=== PATIENT | male | born 1935 | race Caucasian/White ===

== ENCOUNTER 2016-10-28 08:54 | Outpatient (CLI) | payer MEDICARE, BC ==
[~2016-10-28] VITALS: Ht 167.6 cm; Wt 100.0 kg
[~2016-10-28 08:54] MED LIST: 00186-0370-20 IH; ASMANEX TW110 MCG/Ac IH; ASPIRIN 32325 MG/TA1 PO; ASPIRIN 32325 MG/TAB PO; ASPIRIN E.C. 8181 MG PO; CATAFLAM50 MG PO; CAYENNE PEPPER PO; CENTRUM SILVER1 TA1 PO; CORDARONE200 MG/TAB PO; DICLOFENAC50 MG PO; ENALAPRIL5 MG PO; FISH OIL CONC1000 MG PO; GARLIC OIL1 MG PO; GLUCOSAMINE PO; HCTZ 25MG TAB25 MG PO; IMDUR 30MG30 MG/TAB PO; LEVOTHROID0.05 MG PO; LEVOTHYROXINE0.05 M1 PO; LIPITOR40 MG PO; LOPRESSOR 225 MG/TAB PO; LOPRESSOR 550 MG/TAB PO; METOPROLOL25 MG PO; MULTIPLE VITAMI1 CAP PO; NIACIN PO; NIASPAN1000 MG PO; NIASPAN750 MG PO; NORCO 325 MG-51 TAB PO; OMEGA-3 FISH1200 MG PO; PLAVIX 75MG TAB75 MG PO; SYNTHROID0.1 MG/TAB PO; TOPROL XL 25MG25 MG PO; TOPROL XL25 MG PO; UROCIT-K 1010 MEQ PO; VASOTEC 10M10 MG/TAB PO; VASOTEC5 MG PO; VOLTAREN 75 DR75 MG PO
[2016-10-28] MEDS ORDERED: ELIQUIS 5MG PO (10:34)
[2016-10-28] MEDS ORDERED: LASIX 20MG TABL20 MG PO (10:35)
[2016-10-28 11:07] VITALS: BP 139/86; PULSE 86; TEMP 97.8
== END 2016-10-28 14:00 | disposition home or self-care (01) ==
LOC: EUO 08:54
DX: I72.8 Aneurysm of other specified arteries (principal)
CPT/HCPCS: J1940

== ENCOUNTER → 2016-11-02 | Outpatient (CLI) | payer MEDICARE, BC ==
[~2016-11-02] MED LIST changes: +AMOXICILLIN 8751 TAB PO; +ELIQUIS 5MG PO; +LASIX 20MG TABL20 MG PO; +PREDNISONE20 MG PO; +PROAIR HFA0.09 MG/AC IH
== END ==
LOC: COL.RAD 13:01
DX: Z53.9 Procedure and treatment not carried out, unspecified reason (principal)

== ENCOUNTER → 2016-11-18 | Outpatient (CLI) | payer MEDICARE, BC | LOC: COL.RAD 09:29 | DX: I65.21 Occlusion and stenosis of right carotid artery (principal) | CPT/HCPCS: Q9967 ==

== ENCOUNTER 2017-04-12 15:38 | Emergency (ER) | payer MEDICARE, BC ==
[~2017-04-12] VITALS: Ht 167.6 cm; Wt 106.8 kg
[~2017-04-12 15:38] MED LIST changes: -AMOXICILLIN 8751 TAB PO; -PREDNISONE20 MG PO; -PROAIR HFA0.09 MG/AC IH
[2017-04-12 15:42] VITALS: TEMP 98.1
[2017-04-12] MEDS ORDERED: AMOXICILLIN 8751 TAB PO (15:56)
[2017-04-12] MEDS ORDERED: PROAIR HFA0.09 MG/AC IH (15:57)
[2017-04-12 16:14] LABS: BASO % 0.4 % (0.0-2.0); EOS # 0.4 (0.0-0.7); EOS % 3.7 % (0-4.0); GRAN # 6.3 (1.4-6.5); GRAN % 63.4 % (42.2-75.2); HEMATOCRIT 42.9 % (42.0-52.0); HEMOGLOBIN 14.5 g/dl (13.5-18.0); LYMPH # 2.2 (1.2-3.4); LYMPH % 22.5 % (20.0-51.0); MEAN CELL VOLUME 91 fl (80.0-100.0); MEAN CORPUSCULAR HEMOGLOBIN 31 pg (27.0-31.0); MEAN CORPUSCULAR HGB CONC 34 g/dl (33.0-37.0); MEAN PLATELET VOLUME 9.7 fl (7.4-10.4); MONO # 0.9 (0.1-0.6); MONO % 9.5 % (1.7-9.3); PLATELET COUNT 257 K/mm3 (130-400); RED BLOOD COUNT 4.71 M/mm3 (4.20-5.60); REDCELL DISTRIBUTION WIDTH-CV 14.6 % (11.5-14.5); WHITE BLOOD COUNT 9.9 K/mm3 (4.8-10.8)
[2017-04-12 16:17] LABS: PROTHROMBIN TIME 10.8 SECONDS (9.7-12.8)
[2017-04-12 16:20] LABS: PARTIAL THROMBOPLASTIN TIME 31.9 SECONDS (26.0-37.0)
[2017-04-12 16:29] LABS: ADJUSTED CALCIUM 9.1 mg/dL (8.4-10.2); ALBUMIN 3.9 gm/dL (3.5-5.0); BILIRUBIN,TOTAL 1.7 mg/dL (0.0-1.0); C-REACTIVE PROTEIN 4.1 mg/dL (0.0-0.9); CREATININE, serum 1.73 mg/dL (0.66-1.25); POTASSIUM 4.1 mmol/L (3.4-5.0); TOTAL PROTEIN 6.9 gm/dL (6.4-8.2)
[2017-04-12 16:38] LABS: TROPONIN-I 0.024 ng/mL (0.000-0.034)
[2017-04-12] MEDS ORDERED: PREDNISONE20 MG PO (17:41)
[2017-04-12 17:54] VITALS: BP 142/66; PULSE 78
== END 2017-04-12 17:54 | disposition home or self-care (01) ==
LOC: COL.ER 15:38
PROVIDERS: Family Medicine
DX: J44.1 Chronic obstructive pulmonary disease with (acute) exacerbation (principal); E78.5 Hyperlipidemia, unspecified; Z95.1 Presence of aortocoronary bypass graft; Z87.891 Personal history of nicotine dependence; Z79.82 Long term (current) use of aspirin

== ENCOUNTER 2017-10-10 08:15 | Outpatient (CLI) | payer MEDICARE, BC ==
[~2017-10-10] VITALS: Ht 167.6 cm; Wt 96.3 kg
[2017-10-10] VITALS (7 sets, daily range): BP systolic 102–124; BP diastolic 51–82; PULSE 59–67; TEMP 98.2
[~2017-10-10 08:15] MED LIST changes: +AMOXICILLIN 8751 TAB PO; -GARLIC OIL1 MG PO; +GARLIC100 MG PO; +PREDNISONE20 MG PO; +PROAIR HFA0.09 MG/AC IH
[2017-10-10] MEDS ORDERED: LASIX 40MG TABL40 MG PO (09:56)
== END 2017-10-10 14:15 | disposition home or self-care (01) ==
LOC: COL.RAD 08:15 → COL.CAR 09:45 → COL.RAD 14:15 → COL.CAR 10-31 10:30
DX: M48.54XA Collapsed vertebra, not elsewhere classified, thoracic region, initial encounter for fracture (principal)
CPT/HCPCS: J2250; J3010; J7120

== ENCOUNTER → 2018-05-11 | Outpatient (CLI) | payer MEDICARE, BC ==
[~2018-05-11] MED LIST changes: +LASIX 40MG TABL40 MG PO
== END ==
LOC: COL.RAD 08:55
DX: M79.671 Pain in right foot (principal)
CPT/HCPCS: A9503

== ENCOUNTER 2018-09-01 12:16 | Emergency (ER) | payer MEDICARE, BC ==
[~2018-09-01] VITALS: Ht 170.2 cm; Wt 104.5 kg
[2018-09-01 12:23] VITALS: TEMP 97.5
[2018-09-01] MEDS ORDERED: ULTRAM 50MG TAB50 MG PO (12:47)
[2018-09-01] MEDS ORDERED: PERCOCET 325 MG1 TA2 PO (14:25)
[2018-09-01] MEDS ORDERED: FLEXERIL 1010 MG/TAB PO (14:25)
[2018-09-01 14:30] VITALS: BP 167/78; PULSE 67
== END 2018-09-01 14:31 | disposition home or self-care (01) ==
LOC: COL.ER 12:16
DX: S22.060A Wedge compression fracture of T7-T8 vertebra, initial encounter for closed fracture (principal); I10 Essential (primary) hypertension; Z90.89 Acquired absence of other organs; Z90.49 Acquired absence of other specified parts of digestive tract; Z98.890 Other specified postprocedural states; Z88.5 Allergy status to narcotic agent; Z87.891 Personal history of nicotine dependence; Z98.84 Bariatric surgery status; X50.0XXA Overexertion from strenuous movement or load, initial encounter
CPT/HCPCS: J3010

== ENCOUNTER 2018-09-04 12:45 | Emergency (ER) | payer MEDICARE, BC ==
[~2018-09-04] VITALS: Ht 170.2 cm; Wt 104.5 kg
[~2018-09-04 12:45] MED LIST changes: +FLEXERIL 1010 MG/TAB PO; +PERCOCET 325 MG1 TA2 PO; +ULTRAM 50MG TAB50 MG PO
[2018-09-04 12:52] VITALS: TEMP 97.5
[2018-09-04 13:53] LABS: BASO # 0.1 (0.0-0.2); BASO % 0.6 % (0.0-2.0); EOS # 0.2 (0.0-0.7); EOS % 2.6 % (0-4.0); GRAN # 5.8 (1.4-6.5); GRAN % 68.9 % (42.2-75.2); HEMATOCRIT 44.7 % (42.0-52.0); HEMOGLOBIN 14.8 g/dl (13.5-18.0); LYMPH # 1.5 (1.2-3.4); LYMPH % 17.3 % (20.0-51.0); MEAN CELL VOLUME 95 fl (80.0-100.0); MEAN CORPUSCULAR HEMOGLOBIN 31 pg (27.0-31.0); MEAN CORPUSCULAR HGB CONC 33 g/dl (33.0-37.0); MEAN PLATELET VOLUME 10.1 fl (7.4-10.4); MONO # 0.8 (0.1-0.6); PLATELET COUNT 264 K/mm3 (130-400); RED BLOOD COUNT 4.72 M/mm3 (4.20-5.60); REDCELL DISTRIBUTION WIDTH-CV 14.1 % (11.5-14.5)
[2018-09-04 14:03] LABS: BILIRUBIN,TOTAL 1.5 mg/dL (0.0-1.0); CALCIUM 9.7 mg/dL (8.4-10.2); CREATININE, serum 1.24 mg/dL (0.66-1.25); POTASSIUM 4.4 mmol/L (3.4-5.0); TOTAL PROTEIN 7.1 gm/dL (6.4-8.2)
[2018-09-04 14:15] LABS: TROPONIN-I 0.015 ng/mL (0.000-0.034)
[2018-09-04] MEDS ORDERED: PREDNISONE20 MG PO (15:57)
[2018-09-04] MEDS ORDERED: PERCOCET 325 MG1 TA3 PO (18:19)
[2018-09-04 18:29] VITALS: BP 138/70; PULSE 68
== END 2018-09-04 18:29 | disposition home or self-care (01) ==
LOC: COL.ER 12:45
PROVIDERS: Emergency Medicine
DX: S22.060A Wedge compression fracture of T7-T8 vertebra, initial encounter for closed fracture (principal); J44.9 Chronic obstructive pulmonary disease, unspecified; E78.5 Hyperlipidemia, unspecified; I50.9 Heart failure, unspecified; I25.10 Atherosclerotic heart disease of native coronary artery without angina pectoris; Z79.82 Long term (current) use of aspirin; X58.XXXA Exposure to other specified factors, initial encounter
CPT/HCPCS: J1170; J7512; Q9967

== ENCOUNTER → 2018-09-08 | Outpatient (CLI) | payer MEDICARE, BC ==
[~2018-09-08] MED LIST changes: +PERCOCET 325 MG1 TA3 PO
== END ==
LOC: COL.RAD 08:51
DX: M54.6 Pain in thoracic spine (principal); M54.5 Low back pain
CPT/HCPCS: A9503

== ENCOUNTER 2018-11-28 14:59 | Emergency (ER) | payer MEDICARE, BC ==
[~2018-11-28] VITALS: Ht 167.6 cm; Wt 102.3 kg
[2018-11-28 15:04] VITALS: TEMP 98.8
[2018-11-28] MEDS ORDERED: 00186-0370-20 INH (15:13)
[2018-11-28 15:35] LABS: BASO # 0.1 (0.0-0.2); BASO % 0.8 % (0.0-2.0); EOS # 0.3 (0.0-0.7); EOS % 3.4 % (0-4.0); GRAN # 5.3 (1.4-6.5); GRAN % 61.5 % (42.2-75.2); HEMATOCRIT 42.2 % (42.0-52.0); HEMOGLOBIN 14.1 g/dl (13.5-18.0); LYMPH % 23.3 % (20.0-51.0); MEAN CELL VOLUME 94 fl (80.0-100.0); MEAN CORPUSCULAR HEMOGLOBIN 31 pg (27.0-31.0); MEAN CORPUSCULAR HGB CONC 33 g/dl (33.0-37.0); MEAN PLATELET VOLUME 9.4 fl (7.4-10.4); MONO # 0.9 (0.1-0.6); MONO % 10.2 % (1.7-9.3); PLATELET COUNT 275 K/mm3 (130-400); RED BLOOD COUNT 4.49 M/mm3 (4.20-5.60); REDCELL DISTRIBUTION WIDTH-CV 14.5 % (11.5-14.5)
[2018-11-28 15:58] LABS: ALANINE AMINOTRANSFERASE 22 U/L (21-72); ALBUMIN 3.6 gm/dL (3.5-5.0); ALKALINE PHOSPHATASE 108 U/L (50-136); ANION GAP 8 mmol/L (7-16); AST,SGOT 24 U/L (15-37); BILIRUBIN,TOTAL 0.7 mg/dL (0.0-1.0); BLOOD UREA NITROGEN 31 mg/dL (9-20); CALCIUM 9.3 mg/dL (8.4-10.2); CARBON DIOXIDE 29 mmol/L (22-30); CHLORIDE 103 mmol/L (98-107); CREATININE, serum 1.49 (0.66-1.25); GLUCOSE 107 mg/dL (74-106); POTASSIUM 3.9 mmol/L (3.4-5.0); SODIUM 141 mmol/L (137-145); TOTAL PROTEIN 6.4 gm/dL (6.4-8.2)
[2018-11-28 16:00] LABS: ERYTHROCYTE SEDIMENTATION RATE 12 mm/hr (0-30)
[2018-11-28 16:45] LABS: COLLECTION METHOD CLEAN CATCH
[2018-11-28 17:07] LABS: HYALINE CAST >12 /lpf; MUCOUS Present /lpf; PH 5 (5-8); SQUAMOUS EPITHELIAL None Seen /hpf; URINE APPEARANCE Clear; URINE BACTERIA None Seen /hpf; URINE BILIRUBIN Negative (NEGATIVE); URINE BLOOD Negative (NEGATIVE); URINE CALCIUM OXALATE CRYSTAL Present /hpf; URINE COLOR Yellow; URINE GLUCOSE Negative (NEGATIVE); URINE KETONE Negative (NEGATIVE); URINE LEUKOCYTE ESTERASE Negative (NEGATIVE); URINE NITRATE Negative (NEGATIVE); URINE PROTEIN(semi-quant) Negative (NEGATIVE); URINE RBC 0-2 /hpf; URINE UROBILINOGEN Negative (NEGATIVE)
[2018-11-28 17:21] LABS: C-REACTIVE PROTEIN < 0.5 mg/dL (0.0-0.9)
[2018-11-28 20:32] VITALS: BP 151/88; PULSE 77
== END 2018-11-28 20:35 | disposition short-term general hospital (02) ==
LOC: COL.ER 14:59
PROVIDERS: Emergency Medicine
DX: S22.060A Wedge compression fracture of T7-T8 vertebra, initial encounter for closed fracture (principal); M19.90 Unspecified osteoarthritis, unspecified site; I11.0 Hypertensive heart disease with heart failure; I50.9 Heart failure, unspecified; G89.29 Other chronic pain; J44.9 Chronic obstructive pulmonary disease, unspecified; I25.10 Atherosclerotic heart disease of native coronary artery without angina pectoris; M54.41 Lumbago with sciatica, right side; Z79.82 Long term (current) use of aspirin; Z87.891 Personal history of nicotine dependence; X58.XXXA Exposure to other specified factors, initial encounter
CPT/HCPCS: J2060; J2270; J2405

== ENCOUNTER → 2018-12-09 | Outpatient (CLI) | payer MEDICARE, BC ==
[~2018-12-09] MED LIST changes: +00186-0370-20 INH
[2018-12-09 15:14] LABS: COLLECTION METHOD CLEAN CATCH
[2018-12-09 15:22] LABS: BASO # 0.1 (0.0-0.2); BASO % 0.5 % (0.0-2.0); EOS # 0.1 (0.0-0.7); EOS % 0.5 % (0-4.0); GRAN # 12.2 (1.4-6.5); GRAN % 83.3 % (42.2-75.2); HEMATOCRIT 41.9 % (42.0-52.0); HEMOGLOBIN 13.6 g/dl (13.5-18.0); LYMPH # 1.2 (1.2-3.4); LYMPH % 8.4 % (20.0-51.0); MEAN CELL VOLUME 97 fl (80.0-100.0); MEAN CORPUSCULAR HEMOGLOBIN 31 pg (27.0-31.0); MEAN CORPUSCULAR HGB CONC 33 g/dl (33.0-37.0); MEAN PLATELET VOLUME 9.9 fl (7.4-10.4); MONO % 6.7 % (1.7-9.3); PLATELET COUNT 272 K/mm3 (130-400); RED BLOOD COUNT 4.34 M/mm3 (4.20-5.60); REDCELL DISTRIBUTION WIDTH-CV 14.4 % (11.5-14.5)
[2018-12-09 15:26] LABS: MUCOUS Present /lpf; PH 6 (5-8); SQUAMOUS EPITHELIAL 0-2 /hpf; URINE APPEARANCE Clear; URINE BACTERIA None Seen /hpf; URINE BILIRUBIN Negative (NEGATIVE); URINE BLOOD 1+ (NEGATIVE); URINE COLOR Yellow; URINE GLUCOSE Negative (NEGATIVE); URINE KETONE Negative (NEGATIVE); URINE LEUKOCYTE ESTERASE Negative (NEGATIVE); URINE NITRATE Negative (NEGATIVE); URINE PROTEIN(semi-quant) 2+ (NEGATIVE)
[2018-12-09 15:35] LABS: ALBUMIN 3.5 gm/dL (3.5-5.0); BILIRUBIN,TOTAL 1.8 mg/dL (0.0-1.0); CALCIUM 9.4 mg/dL (8.4-10.2); CREATININE, serum 1.03 (0.66-1.25); TOTAL PROTEIN 5.9 gm/dL (6.4-8.2)
== END ==
LOC: ZCOL.LAB 13:35
PROVIDERS: Internal Medicine
DX: R50.9 Fever, unspecified (principal); R06.82 Tachypnea, not elsewhere classified

== ENCOUNTER 2020-12-20 08:12 | Observation (INO) | payer MEDICARE, BC ==
[~2020-12-20] VITALS: Ht 165.1 cm; Wt 96.8 kg
[~2020-12-20 08:12] MED LIST changes: +ASPIRIN 81M81 MG/TA2 PO; +CRANBERRY450 MG PO; +LIPITOR 40MG TA40 MG PO; +MIRALAX PA17 GM/Dose PO; +MONOKET10 MG PO; +OMEGA-3 1000 MG1 CAP PO; +PROTONIX 40MG T40 MG PO; +SYNTHROID0.125 MG/T PO
[2020-12-20 09:48] LABS: BASO # 0.1 (0.0-0.2); BASO % 1.1 % (0.0-2.0); EOS # 0.3 (0.0-0.7); GRAN % 71.3 % (42.2-75.2); HEMATOCRIT 46.6 % (42.0-52.0); HEMOGLOBIN 15.4 g/dl (13.5-18.0); LYMPH # 1.2 (1.2-3.4); LYMPH % 13.7 % (20.0-51.0); MEAN CELL VOLUME 96 fl (80.0-100.0); MEAN CORPUSCULAR HEMOGLOBIN 32 pg (27.0-31.0); MEAN CORPUSCULAR HGB CONC 33 g/dl (33.0-37.0); MEAN PLATELET VOLUME 9.5 fl (7.4-10.4); MONO # 0.8 (0.1-0.6); MONO % 9.2 % (1.7-9.3); PLATELET COUNT 242 K/mm3 (130-400); RED BLOOD COUNT 4.85 M/mm3 (4.20-5.60); REDCELL DISTRIBUTION WIDTH-CV 14.1 % (11.5-14.5)
[2020-12-20 09:57] LABS: CALCIUM 9.4 mg/dL (8.4-10.2); CREATININE, serum 1.35 (0.66-1.25); POTASSIUM 4.5 mmol/L (3.4-5.0)
[2020-12-20] MEDS ORDERED: PLAVIX 75MG TAB75 MG PO (10:34)
--- NOTE | 2020-12-20 11:05 | NUR ---
PATIENT ADMITED INTO ROOM 345 FROM ER WITH A LEFT FIB FX. TECHNOL BRACE TO LLE. A&O. VSS. PATIENT REPORTS HE IS WC BOUND AND LIVES AT HOME. PATIENT REPORTS TX HIMSELF AND FELL A WEEK AGO. ER CONSULTED ORTHO. BEDREST. NOTIFIED HOSPITALIST OF ARRIVAL. HEAD TO TOE ASSESSMENT COMPLETE. ORIENTED TO ROOM. CALL LIGHT IN REACH.
[2020-12-20 11:56] VITALS: BP 141/58; PULSE 63; TEMP 98.2
--- NOTE | 2020-12-20 12:54 | NUR ---
AT BEDSIDE, SEE ORDERS.
[2020-12-20 15:17] LABS: COLLECTION METHOD CLEAN CATCH
[2020-12-20 15:37] LABS: MUCOUS Present /lpf; PH 7 (5-8); SQUAMOUS EPITHELIAL 0-2 /hpf; URINE APPEARANCE Clear; URINE BACTERIA None Seen /hpf; URINE BILIRUBIN Negative (NEGATIVE); URINE BLOOD Negative (NEGATIVE); URINE COLOR Yellow; URINE GLUCOSE Negative (NEGATIVE); URINE KETONE Negative (NEGATIVE); URINE LEUKOCYTE ESTERASE Negative (NEGATIVE); URINE NITRATE Negative (NEGATIVE); URINE PROTEIN(semi-quant) 1+ (NEGATIVE); URINE UROBILINOGEN >=4.0 mg/dL (NEGATIVE)
[2020-12-20 16:08] VITALS: BP 115/49; PULSE 67; TEMP 98.3
[2020-12-20 20:03] VITALS: BP 139/70; PULSE 76; TEMP 98.7
--- NOTE | 2020-12-20 20:09 | NUR ---
SPOKE TO PT ABOUT CPAP NEEDS, OFFERING TO BRING A CPAP TO PRIOR TO HS. PT STATES HE HASN'T WORN HIS FOR MANY YEARS AND WILL NOT WEAR DURING THIS ADMISSION. COMPLETING INTERVENTION.
--- NOTE | 2020-12-20 21:00 | NUR ---
Patient resting in bed with complaints of spasms in his left leg. Oxycodone given for pain and another dose of flexeril will be given. Technol brace to his left lower extremity. Patient voiding in urinal without difficulty. No additional needs at this time. Call light in reach.
[2020-12-21 00:25] VITALS: BP 132/46; PULSE 64; TEMP 97.6
[2020-12-21 04:57] VITALS: BP 127/55; PULSE 60; TEMP 97.4
[2020-12-21 07:13] VITALS: BP 100/53; PULSE 65; TEMP 98.1
--- NOTE | 2020-12-21 08:00 | NUR ---
PATIENT IS A&O. VSS. REPORTS PAIN IN LLE AT 2-3 ON PAIN SCALE, DENIES NEED FOR PAIN MEDS AT THIS TIME. PATIENT REPORTS OCCATIONAL MUSCLE SPASMS, FLEXERILE GIVEN WITH AM MEDS. PATIENT IS WC BOUND AT HOME AND FELL WHILE TX HIMSELF A WEEK AGO. TECHNOL BRACE TO LLE. WBAT. PT/OT CONSULTED. IPR SCREEN ORDERED. DNR. HEAD TO TOE ASSESSMENT COMPLETE. BREAKFAST TRAY AT BEDSIDE. AM BS IS 93. NO OTHER NEEDS AT THIS TIME. CALL LIGHT IN REACH. BED ALARM ON. URINAL IN REACH.
[2020-12-21 08:28] LABS: CALCIUM 8.9 mg/dL (8.4-10.2); CREATININE, serum 1.33 (0.66-1.25); POTASSIUM 4.3 mmol/L (3.4-5.0)
[2020-12-21 11:29] VITALS: BP 112/51; PULSE 57; TEMP 98.1
--- NOTE | 2020-12-21 14:35 | NUR ---
REPORTED OFF TO CLEVE MENDEZ. WHO IS TAKING OVER PATIENT'S CARE.
--- NOTE | 2020-12-21 15:48 | NUR ---
Plans to return home- met with patient about care and DC plan. Patient reports that he resides alone locally but is independent. Patient reports that he has a electic power chair for mobility and a loop monitor for heart but not other DME. Patient shares that his PCP is Dr. Herrmann and Specialist Matt. Patient reports that he does not need any home health supports . Patient reports that he has and Adult DTR Lola Mancia but can not remember phone number, is on chart. Patient reports that his DTR is the POA and he has a DNR. Uses [facility] for medications. Will continue to assess for addtional needs. Educated on services available to him.
[2020-12-21 16:36] VITALS: BP 104/40; PULSE 62; TEMP 97.9
--- NOTE | 2020-12-21 17:27 | NUR ---
Patient awake, laying in bed. A&Ox4. VSS. IV CDI. Denies pain and discomfort. No further needs expressed from the patient. Call light within reach
[2020-12-21 20:33] VITALS: BP 109/57; PULSE 68; TEMP 97.3
--- NOTE | 2020-12-21 21:26 | NUR ---
PT A/O X3, WITH HOB AT 60 DEGREE ANGLE. PT DENIES PAIN AT THIS TIME. PT HAS NO NEEDS, CALL LIGHT WITHYIN REACH.
[2020-12-22 01:39] VITALS: BP 123/53; PULSE 62; TEMP 97.8
[2020-12-22 04:41] VITALS: BP 149/58; PULSE 59; TEMP 97.5
--- NOTE | 2020-12-22 06:26 | NUR ---
PT HAD A GOOD NIGHT. PT HAS BEEN COOPERATIVE WITH STAFF. PT HAD PAIN MEDICATION AROUND 2300, BUT HAD NO REQUIRED ANYMORE PAIN MEDICATION. PT HAD NO ISSUES OR CONCERNS THIS SHIFT. CALL LIGHT WITHIN REACH AND BED ALARM ON.
[2020-12-22 07:03] VITALS: BP 124/55; PULSE 57; TEMP 97.8
[2020-12-22 07:34] LABS: BASO # 0.1 (0.0-0.2); EOS # 0.6 (0.0-0.7); EOS % 8.5 % (0-4.0); GRAN # 4.4 (1.4-6.5); GRAN % 62.1 % (42.2-75.2); HEMATOCRIT 40.6 % (42.0-52.0); HEMOGLOBIN 13.1 g/dl (13.5-18.0); LYMPH # 1.3 (1.2-3.4); LYMPH % 18.7 % (20.0-51.0); MEAN CELL VOLUME 98 fl (80.0-100.0); MEAN CORPUSCULAR HEMOGLOBIN 32 pg (27.0-31.0); MEAN CORPUSCULAR HGB CONC 32 g/dl (33.0-37.0); MEAN PLATELET VOLUME 9.8 fl (7.4-10.4); MONO # 0.6 (0.1-0.6); MONO % 8.9 % (1.7-9.3); PLATELET COUNT 199 K/mm3 (130-400); RED BLOOD COUNT 4.14 M/mm3 (4.20-5.60); REDCELL DISTRIBUTION WIDTH-CV 14.1 % (11.5-14.5)
--- NOTE | 2020-12-22 08:00 | NUR ---
PATIENT ALERT AND ORIENTED X3. VSS. NO COMPLAINTS OF PAIN OR N/V AT THIS TIME. MORNING MEDS ARE PASSED AND HEAD TO TOE ASSESSMENT COMPLETED. LUNG SOUNDS ARE CLEAR IN ALL LOBES, HEART SOUNDS ARE REGULAR AND NORMAL. BOWEL SOUNDS ARE ACTIVE IN ALL FOUR QUADRANTS. SOME EDEMA NOTED IN THE LOWER EXTREMITIES. CALVES ARE NONTENDER, NO WARMTH OR REDNESS NOTED. PATIENT IS BEING SCREENED FOR IPR ADMISSION TODAY FOR LEFT FIBULA FRACTURE, HE IS WHEELCHAIR BOUND AT BASELINE, WBAT AND TECHNOL TO LLE. WILL CONTINUE TO MONITOR. BED LEFT IN THE LOWEST POSITION AND CALL LIGHT LEFT WITHIN REACH.
[2020-12-22 08:05] LABS: CALCIUM 8.3 mg/dL (8.4-10.2); CREATININE, serum 1.36 (0.66-1.25); POTASSIUM 4.1 mmol/L (3.4-5.0)
--- NOTE | 2020-12-22 11:04 | NUR ---
Gregoria, IPR Director staff with this [facility] regarding the patient's discharge disposition. IPR was consulted and they can accept today. Gregoria also reported that the patient receives [id number] and would like to put them on hold until he discharged from hospital care. SW contacted [facility] to pause the meals for the patient until he returns home.
[2020-12-22] MEDS ORDERED: ROXICODONE 55 MG/TAB PO (11:11)
[2020-12-22] MEDS ORDERED: FLEXERIL 1010 MG/TAB PO (11:11)
[2020-12-22] MEDS ORDERED: TYLENOL 325MG325 MG PO (11:12)
[2020-12-22] MEDS ORDERED: SENNA-S 50 MG-81 TAB PO (11:12)
[2020-12-22] MEDS ORDERED: MIRALAX PA17 GM/Dose PO (11:12)
[2020-12-22] MEDS ORDERED: LOVENOX 4040 MG/0.4 SQ (11:13)
[2020-12-22] MEDS ORDERED: LASIX 20MG TABL20 MG PO (11:13)
--- NOTE | 2020-12-22 11:15 | NUR ---
AT BEDSIDE. PATIENT TO BE TRANSFERING TO [facility] TODAY
[2020-12-22 11:52] VITALS: BP 111/46; PULSE 66; TEMP 97.8
--- NOTE | 2020-12-22 13:30 | NUR ---
PATIENT TRANSFERING TO [facility] VIA . KRISTINA HOLDER IV SITE, SEE CHARTING. REPORT GIVEN TO CLEVE ZALDIVAR. PERSONAL BELONGINGS SENT TO [facility]. PATIENT DISCHARGED.
== END 2020-12-22 14:00 ==
LOC: COL.ER 08:12 → SURG 10:24
PROVIDERS: Emergency Medicine; Internal Medicine; Physician Assistant; Student in an Organized Health Care Education/Training Program; ADMIT Hospitalist
DX: S82.832A Other fracture of upper and lower end of left fibula, initial encounter for closed fracture (principal); W05.0XXA Fall from non-moving wheelchair, initial encounter; Y93.89 Activity, other specified; K59.00 Constipation, unspecified; I12.9 Hypertensive chronic kidney disease with stage 1 through stage 4 chronic kidney disease, or unspecified chronic kidney disease; N18.9 Chronic kidney disease, unspecified; Z66 Do not resuscitate; E78.5 Hyperlipidemia, unspecified; I25.10 Atherosclerotic heart disease of native coronary artery without angina pectoris; Z95.1 Presence of aortocoronary bypass graft; J44.9 Chronic obstructive pulmonary disease, unspecified; E03.9 Hypothyroidism, unspecified; R73.03 Prediabetes; G47.33 Obstructive sleep apnea (adult) (pediatric); K21.9 Gastro-esophageal reflux disease without esophagitis; Z95.5 Presence of coronary angioplasty implant and graft; Z79.02 Long term (current) use of antithrombotics/antiplatelets; Z87.891 Personal history of nicotine dependence; Z79.899 Other long term (current) drug therapy; Z86.73 Personal history of transient ischemic attack (TIA), and cerebral infarction without residual deficits; Z79.890 Hormone replacement therapy; Z91.81 History of falling
CPT/HCPCS: G0378; J1644; J7030; L1830; L1846

== ENCOUNTER 2020-12-22 11:27 | Inpatient (IN) | payer MEDICARE, BC ==
[~2020-12-22] VITALS: Ht 165.1 cm; Wt 95.1 kg
[~2020-12-22 11:27] MED LIST changes: +LOVENOX 4040 MG/0.4 SQ; +ROXICODONE 55 MG/TAB PO; +SENNA-S 50 MG-81 TAB PO; +TYLENOL 325MG325 MG PO
[2020-12-22 17:33] VITALS: BP 129/85; PULSE 64; TEMP 97.6
--- NOTE | 2020-12-22 18:50 | NUR ---
PT BROUGHT OVER FROM MEDICAL ROOM 345 TO ROOM 336 BY MEDICAL STAFF. PT C/O SHOULDER PAIN AND REQUESTED TOPICAL TREATMENT, BRANDON JORDAN WAS NOTIFIED AND VOLTAREN GEL WAS ORDERED, HAS NOT BEEN BROUGHT UP FROM PHARMACY. BIMS COMPLETED, ADMISSION ASSESSMENTS, MED REC COMPLETED, ADMISSION PAPERWORK SIGNED.
--- NOTE | 2020-12-22 21:52 | NUR ---
ALERT AND OX3. DENIES MUCH PAIN IN LEFT LEG. C/O BOTH SHOULDERS BEING ACHY. VOLTERAN APPLIED. STAND PIVOT X 1 ASST FROM W/C TO BED AFTER ASST TO BR. PM MEDS GIVEN. PRNS DISCUSSED. POC DISCUSSED. NEEDS MET.
[2020-12-23 03:47] VITALS: BP 130/81; PULSE 80; TEMP 98.6
--- NOTE | 2020-12-23 05:17 | NUR ---
PT DECLINES OFFER FOR HOSPITAL PROVIDED CPAP.
--- NOTE | 2020-12-23 07:42 | NUR ---
Patient resting in bed breakfast at this time. Will continue to monitor.
--- NOTE | 2020-12-23 11:15 | NUR ---
Patient just left with Chuck for his PT session.
[2020-12-23 13:22] VITALS: BP 127/48; PULSE 66
--- NOTE | 2020-12-23 13:27 | NUR ---
Patient reported some dizziness when sitting in his recliner. This nurse assisted him with transferring from the recliner to the bed. Patient's VS stable see Vital Sign charting. Patient resting comfortably at this time, call light in reach and bed alarm set. Will continue to monitor.
--- NOTE | 2020-12-23 16:37 | NUR ---
Patient was seen by provider with new orders for EKG and this was completed. Awaiting for provider to read. Patient currently resting in his room, call light in reach and alarm set. Will continue to monitor.
[2020-12-23 17:29] LABS: BASO # 0.1 (0.0-0.2); BASO % 0.9 % (0.0-2.0); EOS # 0.6 (0.0-0.7); EOS % 8.8 % (0-4.0); GRAN # 3.9 (1.4-6.5); GRAN % 57.7 % (42.2-75.2); HEMATOCRIT 42.1 % (42.0-52.0); HEMOGLOBIN 13.7 g/dl (13.5-18.0); LYMPH # 1.4 (1.2-3.4); LYMPH % 20.4 % (20.0-51.0); MEAN CELL VOLUME 96 fl (80.0-100.0); MEAN CORPUSCULAR HEMOGLOBIN 31 pg (27.0-31.0); MEAN CORPUSCULAR HGB CONC 33 g/dl (33.0-37.0); MEAN PLATELET VOLUME 9.5 fl (7.4-10.4); MONO # 0.8 (0.1-0.6); MONO % 11.3 % (1.7-9.3); PLATELET COUNT 231 K/mm3 (130-400); RED BLOOD COUNT 4.38 M/mm3 (4.20-5.60); REDCELL DISTRIBUTION WIDTH-CV 14.1 % (11.5-14.5)
[2020-12-23 17:40] LABS: ALBUMIN 3.8 gm/dL (3.5-5.0); BILIRUBIN,TOTAL 1.1 mg/dL (0.0-1.0); CREATININE, serum 1.4 (0.66-1.25); MAGNESIUM 2.3 mg/dL (1.6-2.3); POTASSIUM 4.4 mmol/L (3.4-5.0); TOTAL PROTEIN 6.6 gm/dL (6.4-8.2)
[2020-12-23 17:49] VITALS: BP 116/50; PULSE 59
[2020-12-23 17:54] VITALS: BP 117/63; PULSE 62; TEMP 97.2
--- NOTE | 2020-12-23 19:15 | NUR ---
RECEIVED CHANGE OF SHIFT REPORT FROM DAY SHIFT NURSE. BED ALARM ON.
[2020-12-24 05:58] VITALS: BP 144/56; PULSE 56; TEMP 97.3
--- NOTE | 2020-12-24 06:59 | NUR ---
CHANGE OF SHIFT REPORT GIVEN TO DAY SHIFT NURSE, JASMEET POON.
--- NOTE | 2020-12-24 08:16 | NUR ---
*LATE ENTRY 12/23* The patient is new to [facility]. Bale Stacker met with the patient to complete intake. The patient lives in alone in [place]. The patient has 2 wheelchairs, a transport chair, power lift chair and is independent with ADLs. The patient's PCP is Dr. Doran and patient receives medications from [facility] and via mail from the [place]. The patient has advanced directives in the EMR. SW will continue to follow to ensure the safest discharge disposition.
--- NOTE | 2020-12-24 10:12 | NUR ---
Patient working with OT at this time.
--- NOTE | 2020-12-24 10:12 | NUR ---
Initial visit; Patient thanked Digital Strategist Senior Manager for looking in on him and offering prayer and God's blessings and to keep him in Digital Strategist Senior Manager's prayers.
[2020-12-24 14:45] VITALS: BP 131/56; PULSE 63; TEMP 98
--- NOTE | 2020-12-24 15:59 | NUR ---
Fleet Mechanic met with the patient to present the Team Conference Note. The team has set a tentative discharge date of Tuesday, 12/27. The team is recommending home health services. The patient was agreeable to the above discharge plan. SW presented Medicare.gov's list of home health agencies. The patient has had [facility] in the past and was interested in using them again. Referral sent.
--- NOTE | 2020-12-24 19:06 | NUR ---
RECEIVED CHANGE OF SHIFT REPORT FROM DAY SHIFT NURSE. BED ALARM ON WHEN IN BED.
--- NOTE | 2020-12-24 19:24 | NUR ---
Patient attended all therapies today, but does them very slow and requiring much redirection and queing. Patient was incontinent of stool this shift and of urine multiple times. He was a max assist with one toilet transfer this shift. Patient currently resting in bed, call light in reach and bed alarm set. Family stopped by to see patient earlier this evening. Reported off to night nurse.
--- NOTE | 2020-12-24 19:36 | NUR ---
Patient independent with eating his meals. He attended all his therapies and tolerated diet well. He reported some discomfort to his bilateral shoulders of which this nurse applied prn pain ointment that was effective. He is currently resting in bed, call light in reach and bed alarm set. Reported off to night nurse.
--- NOTE | 2020-12-24 20:00 | NUR ---
PATIENT CONTINUES TO USE W/C FOR MOBILIZING SELF FROM BED TO BATHROOM AND BACK. DENIES CHEST PAIN/SOA/NAUSEA AT THIS TIME. DENIES NUMBNESS/TINGLING TO EXTREMITIES. OBSERVE NO EXTREMITIES WEAKNESS WITH PIVOT TRANSFERS OUT OF BED TO W/C.
[2020-12-25 04:39] VITALS: BP 131/45; PULSE 64; TEMP 97.7
--- NOTE | 2020-12-25 06:47 | NUR ---
CHANGE OF SHIFT REPORT GIVEN TO DAY SHIFT NURSE, ZEN POON.
--- NOTE | 2020-12-25 09:43 | NUR ---
PT DENIES PAIN THIS AM, ASSISTED TO THE BATHROOM THIS AM. VOLTAREN UTILIZED TO BOTH SHOULDERS.
--- NOTE | 2020-12-25 14:56 | NUR ---
Admission QIM scores were reviewed by the team. Code of 6 chosen for eating was determined by team discussion to be the most usual performance for this patient during the assessment period. Code of 6 chosen for oral hygiene was determined by team discussion to be the most usual performance before interventions for this patient during the assessment period. Code of 4 chosen for toilet hygiene was determined by team discussion to be the most usual performance for this patient during the assessment period. Code of 4 chosen for toileting transfers was determined by team discussion to be the most usual performance for this patient during the assessment period. Code of 4 chosen for sit to lying was determined by team discussion to be the most usual performance for this patient during the assessment period. Code of 6 chosen for lying to sitting on side of bed was determined by team discussion to be the most usual performance for this patient during the assessment period. Code of 4 for chair/bed to chair transfers was determined by team discussion to be the most usual performance for this patient during the assessment period.--Gregoria Daniels,
--- NOTE | 2020-12-25 15:15 | NUR ---
Aisha from [facility] reports they can accept the patient for services after discharge.
[2020-12-25 16:49] VITALS: BP 121/48; PULSE 67; TEMP 97.9
--- NOTE | 2020-12-25 21:00 | NUR ---
PT RESTING IN BED. WATCHING TV. CHEERFUL. MOD IN ROOM. ENC TO CALL IF NEEDING ASSIST. PT AGREED. DENIES PAIN. CALL LIGHT IN REACH.
[2020-12-26 05:18] VITALS: BP 134/47; PULSE 66; TEMP 97.6
--- NOTE | 2020-12-26 07:25 | NUR ---
Patient resting in bed and is independent in his room with a wheelchair. Patient denies any questions or having any pain at this time. Will continue to monitor.
[2020-12-26 07:31] LABS: CALCIUM 8.7 mg/dL (8.4-10.2); CREATININE, serum 1.25 (0.66-1.25); MAGNESIUM 2.2 mg/dL (1.6-2.3); POTASSIUM 4.4 mmol/L (3.4-5.0)
[2020-12-26] MEDS ORDERED: TYLENOL 325MG325 MG PO (10:40)
[2020-12-26] MEDS ORDERED: FLEXERIL 1010 MG/TAB PO (10:40)
[2020-12-26] MEDS ORDERED: VOLTAREN GEL 1%1 TU TP (10:40)
--- NOTE | 2020-12-26 14:57 | NUR ---
Patient had an incontinent episode of stool this morning. This nurse washed patient's clothes out and then placed in washer in therapy. Patient currently resting in bed, call light in reach and modified independent in room with wheelchair. Will continue to monitor.
[2020-12-26 17:37] VITALS: BP 138/61; PULSE 68; TEMP 98.6
--- NOTE | 2020-12-26 19:15 | NUR ---
PT WAS TRANSFERRING FROM TOILET TO . HAS A NEW SKIN TEAR TO TOP OF LT HAND. [id number] GAUZE AND KERLIX APPLIED.
--- NOTE | 2020-12-26 21:18 | NUR ---
MOD I IN ROOM IN . PT POPEYE WELL. DENIES NEEDS AT THIS TIME. CALL LIGHT IN REACH.
[2020-12-27 05:27] VITALS: BP 129/62; PULSE 64; TEMP 98.1
--- NOTE | 2020-12-27 09:40 | NUR ---
REVIEWED DISCHARGE INSTRUCTIONS WITH PT. QUESTIONS ANSWERED. PT TAKEN TO ED ENTRANCE PER WHEEL CHAIR.
--- NOTE | 2020-12-27 13:56 | NUR ---
NILSA faxed DC orders to [facility] at [phone]. NF
--- NOTE | 2020-12-29 14:49 | NUR ---
Discharge QIM scores were reviewed by the team. Code of 4 chosen for toilet hygiene was determined by team discussion to be the most usual performance for this patient during the assessment period.--Gregoria Daniels, PD
== END 2020-12-27 09:42 | disposition home health service (06) | DRG 561 ==
PROVIDERS: Physician Assistant; ADMIT Internal Medicine
DX: S82.65XD Nondisplaced fracture of lateral malleolus of left fibula, subsequent encounter for closed fracture with routine healing (principal); I12.9 Hypertensive chronic kidney disease with stage 1 through stage 4 chronic kidney disease, or unspecified chronic kidney disease; N18.30 Chronic kidney disease, stage 3 unspecified; E03.9 Hypothyroidism, unspecified; I48.91 Unspecified atrial fibrillation; J44.9 Chronic obstructive pulmonary disease, unspecified; K21.9 Gastro-esophageal reflux disease without esophagitis; I25.10 Atherosclerotic heart disease of native coronary artery without angina pectoris; Z66 Do not resuscitate; R73.03 Prediabetes; G47.33 Obstructive sleep apnea (adult) (pediatric); K59.00 Constipation, unspecified; E78.5 Hyperlipidemia, unspecified; F17.210 Nicotine dependence, cigarettes, uncomplicated; W05.0XXD Fall from non-moving wheelchair, subsequent encounter; Z79.891 Long term (current) use of opiate analgesic; Z95.5 Presence of coronary angioplasty implant and graft; Z95.1 Presence of aortocoronary bypass graft; Z86.73 Personal history of transient ischemic attack (TIA), and cerebral infarction without residual deficits; Z88.5 Allergy status to narcotic agent; Y93.89 Activity, other specified; Z79.02 Long term (current) use of antithrombotics/antiplatelets; Z79.899 Other long term (current) drug therapy; Z79.890 Hormone replacement therapy; Z91.81 History of falling
CPT/HCPCS: 99222-AI; 99231-AI; 99232-AI; 99239; G0378; J1644; J1650; J7030; L1830; L1846

== ENCOUNTER 2021-12-27 12:50 | Emergency (ER) | payer MEDICARE, BC ==
[~2021-12-27] VITALS: Ht 167.6 cm; Wt 90.9 kg
[~2021-12-27 12:50] MED LIST changes: +VOLTAREN GEL 1%1 TU TP
[2021-12-27 12:56] VITALS: TEMP 99.7
[2021-12-27 13:13] LABS: BASO # 0.1 K/mm3 (0.0-0.2); BASO % 0.6 % (0.0-2.0); EOS # 0.3 K/mm3 (0.0-0.7); EOS % 2.7 % (0.0-4.0); GRAN # 7.8 K/mm3 (1.4-6.5); GRAN % 67.1 % (42.2-75.2); HEMATOCRIT 46.9 % (42.0-52.0); HEMOGLOBIN 15.5 g/dl (13.5-18.0); LYMPH # 2.4 K/mm3 (1.2-3.4); LYMPH % 20.5 % (20.0-51.0); MEAN CELL VOLUME 95 fl (80.0-100.0); MEAN CORPUSCULAR HEMOGLOBIN 31 pg (27-31); MEAN CORPUSCULAR HGB CONC 33 g/dl (33.0-37.0); MEAN PLATELET VOLUME 9.3 fl (7.4-10.4); MONO % 8.5 % (1.7-9.3); PLATELET COUNT 319 K/mm3 (130-400); RED BLOOD COUNT 4.94 M/mm3 (4.20-5.60); REDCELL DISTRIBUTION WIDTH-CV 14.2 % (11.5-14.5)
[2021-12-27 13:21] LABS: PROTHROMBIN TIME 11.6 SECONDS (9.7-12.8)
[2021-12-27 13:24] LABS: ALANINE AMINOTRANSFERASE 13 U/L (0-55); ALKALINE PHOSPHATASE 83 U/L (40-150); ANION GAP 9 mmol/L (7-16); AST,SGOT 20 U/L (5-34); BILIRUBIN,TOTAL 1.6 mg/dL (0.2-1.2); BLOOD UREA NITROGEN 19 mg/dL (8-26); CALCIUM 9.2 mg/dL (8.4-10.2); CARBON DIOXIDE 25 mmol/L (23-31); CHLORIDE 109 mmol/L (98-107); CREATININE, serum 1.21 mg/dL (0.72-1.25); GLUCOSE 89 mg/dL (70-99); PARTIAL THROMBOPLASTIN TIME 35.8 SECONDS (26.0-37.0); POTASSIUM 4.5 mmol/L (3.5-4.5); SODIUM 143 mmol/L (136-145); TOTAL PROTEIN 6.7 gm/dL (6.2-8.1)
[2021-12-27 13:30] LABS: TROPONIN-I < 0.010 ng/mL (0.00-0.033)
[2021-12-27] MEDS ORDERED: PERCOCET 325 MG1 TA2 PO (15:14)
[2021-12-27 15:50] VITALS: BP 118/83; PULSE 80
== END 2021-12-27 15:50 | disposition home or self-care (01) ==
LOC: COL.ER 12:50
PROVIDERS: Family Medicine
DX: S22.060A Wedge compression fracture of T7-T8 vertebra, initial encounter for closed fracture (principal); Z88.5 Allergy status to narcotic agent; X58.XXXA Exposure to other specified factors, initial encounter
CPT/HCPCS: J2270; Q9967

== ENCOUNTER 2022-01-01 09:04 | Emergency (ER) | payer MEDICARE, BC ==
[~2022-01-01] VITALS: Ht 170.2 cm; Wt 90.9 kg
[2022-01-01 09:11] VITALS: TEMP 98.9
[2022-01-01] MEDS ORDERED: GARLIC100 MG PO ×2 (09:16→15:34)
[2022-01-01] MEDS ORDERED: COMPLETE MULTI1 TAB PO ×2 (09:16→15:33)
[2022-01-01] MEDS ORDERED: MASON NATURAL1200 MG PO ×2 (09:16→15:32)
[2022-01-01] MEDS ORDERED: VITAMIN D31000 IU PO ×2 (09:17→15:33)
[2022-01-01 10:02] LABS: BASO # 0.1 K/mm3 (0.0-0.2); BASO % 0.8 % (0.0-2.0); EOS # 0.1 K/mm3 (0.0-0.7); EOS % 1.4 % (0.0-4.0); GRAN # 6.8 K/mm3 (1.4-6.5); GRAN % 77.2 % (42.2-75.2); HEMATOCRIT 42.7 % (42.0-52.0); HEMOGLOBIN 14.2 g/dl (13.5-18.0); LYMPH # 0.9 K/mm3 (1.2-3.4); LYMPH % 10.1 % (20.0-51.0); MEAN CELL VOLUME 95 fl (80.0-100.0); MEAN CORPUSCULAR HEMOGLOBIN 32 pg (27-31); MEAN CORPUSCULAR HGB CONC 33 g/dl (33.0-37.0); MEAN PLATELET VOLUME 9.3 fl (7.4-10.4); MONO # 0.9 K/mm3 (0.1-0.6); MONO % 9.9 % (1.7-9.3); PLATELET COUNT 291 K/mm3 (130-400); RED BLOOD COUNT 4.49 M/mm3 (4.20-5.60)
[2022-01-01 10:18] LABS: ALBUMIN 3.5 gm/dL (3.4-4.8); CALCIUM 8.7 mg/dL (8.4-10.2); CREATININE, serum 1.32 mg/dL (0.72-1.25); POTASSIUM 4.1 mmol/L (3.5-4.5); TOTAL PROTEIN 6.3 gm/dL (6.2-8.1)
[2022-01-01 13:18] VITALS: BP 118/67; PULSE 76
[2022-01-01] MEDS ORDERED: PLAVIX 75MG TAB75 MG PO (15:31)
[2022-01-01] MEDS ORDERED: CORDARONE200 MG/TAB PO (15:31)
[2022-01-01] MEDS ORDERED: LOPRESSOR 225 MG/TAB PO (15:32)
[2022-01-01] MEDS ORDERED: LIPITOR 40MG TA40 MG PO (15:32)
[2022-01-01] MEDS ORDERED: IMDUR 30MG30 MG/TAB PO (15:32)
[2022-01-01] MEDS ORDERED: PERCOCET 325 MG1 TA2 PO (15:33)
[2022-01-01] MEDS ORDERED: PROTONIX 40MG T40 MG PO (15:33)
[2022-01-01] MEDS ORDERED: 00186-0370-20 IH (15:33)
[2022-01-01] MEDS ORDERED: SYNTHROID0.125 MG/T PO (15:33)
[2022-01-01] MEDS ORDERED: OSCAL 500 TAB500 MG PO (15:41)
--- NOTE | 2022-01-01 16:21 | NUR ---
Art Dealer received consult for patient who was seen in ED and not safe to return home at this time. NILSA Sawyer attempted to meet with patient initially, however patient unable to talk due to level of pain. NILSA contacted patient's daughter Heavenly to discuss half-way referrals. NILSA advised referrals would be sent to the three local SNFs: [facility], [facility], and [facility]. NILSA advised Heavenly it would be private pay as patient does not have three midnight qualification for SNF stay. Heavenly verbalized understanding and throught patient may have around $30,000. NILSA faxed referrals to the above facilities. Noble at [facility] advised they cannot accept today due to bed availability. Ryan at [facility] contacted NILSA and is able to accept today. NILSA advised Ryan patient had IV morphine in ED. Ryan collaborated with his team and they can still accept. NILSA met with patient to provide above update. NILSA also spoke with both of patient's daughters via speakerphone, Heavenly and Charu. Charu would like time to contact [facility] and requested SW speak with Liss Eller, Bevel Polisher for [facility]. NILSA contacted Liss who advised per their director they cannot accept today or this weekend. NILSA followed up with Charu who advised she talked with both Ryan at [facility] and patient. Plan will be for discharge today to [facility] private pay. NILSA contacted Ryan and arranged transportation for 1630. NILSA notified RN of transport time. NILSA faxed discharge orders and negative covid results to Ryan at [facility]. Discharge Plan: [facility] private pay
== END 2022-01-01 13:18 | disposition other institution (70) ==
LOC: COL.ER 09:04 → SURG 11:38
PROVIDERS: Emergency Medicine
DX: M54.50 Low back pain, unspecified (principal); Z79.02 Long term (current) use of antithrombotics/antiplatelets; Z91.81 History of falling; Z98.890 Other specified postprocedural states; Z88.5 Allergy status to narcotic agent
CPT/HCPCS: 99223; J2270

== ENCOUNTER 2022-01-29 17:14 | Observation (INO) | payer MEDICARE, BC ==
[~2022-01-29] VITALS: Ht 165.1 cm; Wt 87.4 kg
[~2022-01-29 17:14] MED LIST changes: +COMPLETE MULTI1 TAB PO; +MASON NATURAL1200 MG PO; +OSCAL 500 TAB500 MG PO; +VITAMIN D31000 IU PO
[2022-01-29 17:37] LABS: BASO # 0.1 K/mm3 (0.0-0.2); BASO % 0.8 % (0.0-2.0); EOS # 0.2 K/mm3 (0.0-0.7); EOS % 2.1 % (0.0-4.0); GRAN # 5.6 K/mm3 (1.4-6.5); GRAN % 62.2 % (42.2-75.2); HEMATOCRIT 43.5 % (42.0-52.0); HEMOGLOBIN 14.9 g/dl (13.5-18.0); LYMPH # 2.3 K/mm3 (1.2-3.4); LYMPH % 25.1 % (20.0-51.0); MEAN CELL VOLUME 93 fl (80.0-100.0); MEAN CORPUSCULAR HEMOGLOBIN 32 pg (27-31); MEAN CORPUSCULAR HGB CONC 34 g/dl (33.0-37.0); MEAN PLATELET VOLUME 9.6 fl (7.4-10.4); MONO # 0.8 K/mm3 (0.1-0.6); PLATELET COUNT 311 K/mm3 (130-400); RED BLOOD COUNT 4.66 M/mm3 (4.20-5.60); REDCELL DISTRIBUTION WIDTH-CV 13.8 % (11.5-14.5)
[2022-01-29 17:50] LABS: PROTHROMBIN TIME 11.2 SECONDS (9.7-12.8)
[2022-01-29 17:52] LABS: PARTIAL THROMBOPLASTIN TIME 30.1 SECONDS (26.0-37.0)
[2022-01-29 18:54] LABS: TROPONIN-I < 0.010 ng/mL (0.00-0.033)
[2022-01-29 18:55] LABS: ALANINE AMINOTRANSFERASE 21 U/L (0-55); ALBUMIN 3.4 gm/dL (3.4-4.8); ALKALINE PHOSPHATASE 83 U/L (40-150); ANION GAP 12 mmol/L (7-16); BILIRUBIN,TOTAL 0.9 mg/dL (0.2-1.2); BLOOD UREA NITROGEN 22 mg/dL (8-26); CALCIUM 9.3 mg/dL (8.4-10.2); GLUCOSE 99 mg/dL (70-99); TOTAL PROTEIN 6.1 gm/dL (6.2-8.1)
[2022-01-29 18:56] LABS: CARBON DIOXIDE 23 mmol/L (23-31); CHLORIDE 108 mmol/L (98-107); CREATININE, serum 1.11 mg/dL (0.72-1.25); POTASSIUM 4.3 mmol/L (3.5-4.5); SODIUM 143 mmol/L (136-145)
[2022-01-29 19:09] LABS: AST,SGOT 22 U/L (5-34)
--- NOTE | 2022-01-29 22:50 | NUR ---
PT ARRIVES VIA CART FROM ED. AMBULATES INTO BATHROOM WITH ASSIST OF ONE TO VOID. TO BED WITH ASSIST OF ONE/GAIT BELT AND WALKER. GAIT SLOW AND STEADY. HAS INT TO LEFT WRIST. IS ALERT AND ORIENTED X4.
[2022-01-29 23:31] VITALS: BP 157/75; PULSE 79; TEMP 97.6
[2022-01-29] MEDS ORDERED: MIRALAX PA17 GM/Dose PO (23:32)
[2022-01-29] MEDS ORDERED: LASIX 20MG TABL20 MG PO (23:32)
[2022-01-29] MEDS ORDERED: TYLENOL 500MG500 MG PO (23:38)
--- NOTE | 2022-01-29 23:50 | NUR ---
PT REPORTS PAIN TO LOWER BACK /. MEDICATED WITH MORPHINE 2MG IVP AND OXYCODONE 5MG PO AT THIS TIME. PT HAS CELL PHONE AT BEDSIDE. ADMISSION QUESTIONS COMPLETE. BRUISING NOTED TO BOTH FOREARMS. CALL LIGHT WITHIN REACH. BED ALARM ON.
--- NOTE | 2022-01-30 03:25 | NUR ---
MEDICATED WITH MORPHINE 2MG IVP FOR PAIN TO LOWER BACK 01/29.
[2022-01-30 04:20] VITALS: BP 135/66; PULSE 77; TEMP 98
--- NOTE | 2022-01-30 06:00 | NUR ---
PT ASSISTED TO BATHROOM TO VOID, ONE ASSIST/GAIT BELT AND WALKER. GAIT STEADY. BACK TO BED. REPORTS PAIN TO LOWER BACK, MEDICATED WITH OXYCODONE 5MG PO WITH ES TYLENOL AT THIS TIME. SCHEDULED AM MEDS GIVEN ALSO. SCDS ON.
[2022-01-30 07:48] LABS: CALCIUM 9.2 mg/dL (8.4-10.2); CREATININE, serum 1.13 mg/dL (0.72-1.25); POTASSIUM 4.1 mmol/L (3.5-4.5)
[2022-01-30 07:58] VITALS: BP 142/60; PULSE 73; TEMP 98.2
[2022-01-30 08:04] LABS: BASO # 0.1 K/mm3 (0.0-0.2); BASO % 0.7 % (0.0-2.0); EOS # 0.4 K/mm3 (0.0-0.7); EOS % 4.4 % (0.0-4.0); GRAN # 5.4 K/mm3 (1.4-6.5); GRAN % 63.4 % (42.2-75.2); HEMATOCRIT 44.4 % (42.0-52.0); HEMOGLOBIN 14.3 g/dl (13.5-18.0); LYMPH # 1.9 K/mm3 (1.2-3.4); LYMPH % 22.1 % (20.0-51.0); MEAN CORPUSCULAR HEMOGLOBIN 32 pg (27-31); MEAN CORPUSCULAR HGB CONC 32 g/dl (33.0-37.0); MEAN PLATELET VOLUME 9.4 fl (7.4-10.4); MONO # 0.7 K/mm3 (0.1-0.6); MONO % 8.6 % (1.7-9.3); PLATELET COUNT 262 K/mm3 (130-400); REDCELL DISTRIBUTION WIDTH-CV 14.1 % (11.5-14.5)
[2022-01-30 08:05] LABS: MEAN CELL VOLUME 99 fl (80.0-100.0)
--- NOTE | 2022-01-30 09:17 | NUR ---
PT RESTING IN BED, PT ORDERED BREAKFAST, AM MEDS GIVEN ORDERED. PT TAKING GOOD PO INTAKE. PAIN CONTROLLED WITH PO MEDS THIS AM. IV TO RFA. POSSIBLE DISCAHRGE LATER THIS WEEKEND.
--- NOTE | 2022-01-30 10:40 | NUR ---
Initial visit; Patient thanked Hose Operator for looking in on him and offering prayer and God's blessings. Patient kindly offered the same to Hose Operator.
[2022-01-30 12:00] VITALS: BP 124/71; PULSE 71; TEMP 98.4
--- NOTE | 2022-01-30 13:04 | NUR ---
NILSA met with patient to complete intake and discuss discharge plan. Patient's daughter Wendie ([phone]) present at bedside. Patient reports that he was discharged from [facility] 1 week ago after staying there for 2 weeks. Prior to this he was living at home alone. Patient reports that he is wheelchair bound but can transfer himself. Patient RN states that the patient was able to walk to the restroom this morning with assistance. He does have a motorized wheelchair at home that he utilizes but not other DME and no home oxygen needs. Patient states the he is established with [facility] [employer] [facility] for food in addition to freezer meals. PCP is Dr. Fisher and he uses [facility] for medication needs. Patient reports that he does have a DPOA-HC established. Discharge options of going back to [place], home with HH or home with private duty caregivers discussed. PAtients status discussed and educated him that if he would like to go skilled it would be private pay due to him being OBS status. Patient reports that when he was admitted to [facility] he paid for a month upfront and only was their for two weeks. This is his preferred discharge plan. Informed the patient that i will call and talk with Ryan about his case. Wendie asks about the Covid-19 waiver and why we cannot get him into a facility with that. Informed her that at this time that none of the long term in [facility] are not enacting that waiver. Patient verbalized that he does not feel like he can safely take care of himself at home and that if he cannot get into [facility] he would like to look into [facility]. Phone call made to Ryan who states that the refund has processed through their facility and that he has already sold the patient's room. Ryan requests that i send the patient's information over and he will talk with his [place] team to discuss what could possibly be done for the patient. Patient's daughter Alivia, who lives in [place], called Wendie wanting to speak with me. Alivia states that in the [place] area the long term are enacting the Covid-19 waiver and doesn't understand why this is not an option for the patient. Education about the waiver provided. Informed the family as a whole that i will check with other facilities but at this time i did not know any any of the surrounding NH that are offering this. Discharge plan: Assisted living (private pay)
[2022-01-30 16:00] VITALS: BP 128/64; PULSE 79; TEMP 98.2
--- NOTE | 2022-01-30 16:10 | NUR ---
Clinical referral sent to [facility]
--- NOTE | 2022-01-30 19:30 | NUR ---
PT SITTING IN W/C OUTSIDE OF ROOM D/T WEATHER WARNINGS. REPORTS PAIN TO LOWER BACK, MEDICATED WITH OXYCODONE 5MG PO AND ES TYLENOL 500MG PO AT THIS TIME. HAS RT WRIST INT, FLUSHES WELL.
[2022-01-30 20:13] VITALS: BP 128/63; PULSE 83; TEMP 98.2
--- NOTE | 2022-01-30 20:25 | NUR ---
ASSISTED PT TO BATHROOM AND TO BED. MEDICATED WITH HS MEDS INCLUDING BENADRYL 25MG PO AND NEW MED GABAPENTIN 300MG PO FOR NEUROPATHY. IS ALERT AND ORIENTED X4. VOIDING YELLOW URINE. REFUSES SCDS, "THEY MAKE TOO MUCH NOISE". HOPING TO GET SLEEP TONIGHT.
[2022-01-31 04:43] VITALS: BP 117/92; PULSE 82; TEMP 97.7
--- NOTE | 2022-01-31 06:40 | NUR ---
PT ASSISTED TO BATHROOM AND BACK TO BED. MEDICATED WITH AM MEDS INCLUDING OXYCODONE 5MG PO FOR BACK PAIN.
[2022-01-31 06:53] LABS: BASO # 0.1 K/mm3 (0.0-0.2); EOS # 0.5 K/mm3 (0.0-0.7); EOS % 6.5 % (0.0-4.0); GRAN # 5.1 K/mm3 (1.4-6.5); GRAN % 61.6 % (42.2-75.2); HEMATOCRIT 42.3 % (42.0-52.0); HEMOGLOBIN 13.8 g/dl (13.5-18.0); LYMPH # 1.5 K/mm3 (1.2-3.4); LYMPH % 18.4 % (20.0-51.0); MEAN CELL VOLUME 98 fl (80.0-100.0); MEAN CORPUSCULAR HEMOGLOBIN 32 pg (27-31); MEAN CORPUSCULAR HGB CONC 33 g/dl (33.0-37.0); MEAN PLATELET VOLUME 9.4 fl (7.4-10.4); MONO % 11.5 % (1.7-9.3); PLATELET COUNT 239 K/mm3 (130-400); RED BLOOD COUNT 4.33 M/mm3 (4.20-5.60); REDCELL DISTRIBUTION WIDTH-CV 13.9 % (11.5-14.5)
[2022-01-31 07:12] LABS: CALCIUM 9.4 mg/dL (8.4-10.2); CREATININE, serum 1.47 mg/dL (0.72-1.25); POTASSIUM 5.3 mmol/L (3.5-4.5)
[2022-01-31 08:00] VITALS: BP 102/61; PULSE 68; TEMP 97.8
--- NOTE | 2022-01-31 09:23 | NUR ---
PT UP TO BR WITH SBAX1 VOIDED AND RETURNED TO BED. PLAN ON DISCHARGE LATER TODAY AND RETURN NEXT WEEK FOR FURTHER PROCEEDURES OUTPATIENT.
[2022-01-31] MEDS ORDERED: ROXICODONE 55 MG/TAB PO (09:32)
--- NOTE | 2022-01-31 10:41 | NUR ---
PT WORKED WITH PHYSICAL THERAPY. REFUSING HOME HEALTH. REPORTED TO DR. BARNES AND WILL DISCHARGE HOME LATER TODAY.
[2022-01-31 11:35] VITALS: BP 125/43; PULSE 67; TEMP 97.9
--- NOTE | 2022-01-31 13:39 | NUR ---
informed Sw that the pt will go home with assist from family 01/31. No needs for referrals.
--- NOTE | 2022-01-31 14:26 | NUR ---
DISCHARGE INSTSRUCTIONS REVIWED WITH PT AND FAMILY. QUESTIONS SOLICITED AND ANSWERED. PT LEFT UNIT PER WHEEL CHAIR.
== END 2022-01-31 13:00 | disposition home or self-care (01) ==
LOC: COL.ER 17:14 → SURG 21:58
PROVIDERS: Emergency Medicine; Physician Assistant; Student in an Organized Health Care Education/Training Program; ADMIT Internal Medicine
DX: S22.050A Wedge compression fracture of T5-T6 vertebra, initial encounter for closed fracture (principal); G89.29 Other chronic pain; E78.5 Hyperlipidemia, unspecified; I25.10 Atherosclerotic heart disease of native coronary artery without angina pectoris; I48.91 Unspecified atrial fibrillation; Z86.73 Personal history of transient ischemic attack (TIA), and cerebral infarction without residual deficits; I65.29 Occlusion and stenosis of unspecified carotid artery; J44.9 Chronic obstructive pulmonary disease, unspecified; E03.9 Hypothyroidism, unspecified; G47.33 Obstructive sleep apnea (adult) (pediatric); I12.9 Hypertensive chronic kidney disease with stage 1 through stage 4 chronic kidney disease, or unspecified chronic kidney disease; N18.9 Chronic kidney disease, unspecified; K21.9 Gastro-esophageal reflux disease without esophagitis
CPT/HCPCS: 99233-AI; 99239; G0378; J2270; J2405; Q9967

== ENCOUNTER 2022-10-30 00:55 | Inpatient (IN) | payer MEDICARE, BC ==
[~2022-10-30] VITALS: Ht 175.3 cm; Wt 88.9 kg
[~2022-10-30 00:55] MED LIST changes: +TYLENOL 500MG500 MG PO
[2022-10-30 01:21] LABS: BASO # 0.1 K/mm3 (0.0-0.2); BASO % 0.8 % (0.0-2.0); EOS % 0.2 % (0.0-4.0); GRAN # 9.5 K/mm3 (1.4-6.5); GRAN % 82.3 % (42.2-75.2); HEMATOCRIT 42.1 % (42.0-52.0); HEMOGLOBIN 14.2 g/dl (13.5-18.0); LYMPH # 0.9 K/mm3 (1.2-3.4); LYMPH % 7.7 % (20.0-51.0); MEAN CELL VOLUME 94 fl (80.0-100.0); MEAN CORPUSCULAR HEMOGLOBIN 32 pg (27-31); MEAN CORPUSCULAR HGB CONC 34 g/dl (33.0-37.0); MEAN PLATELET VOLUME 9.2 fl (7.4-10.4); MONO % 8.3 % (1.7-9.3); PLATELET COUNT 231 K/mm3 (130-400); RED BLOOD COUNT 4.46 M/mm3 (4.20-5.60)
[2022-10-30 01:29] LABS: INR 1.1 (0.8-3.0); PROTHROMBIN TIME 12.4 SECONDS (9.7-12.8)
[2022-10-30 01:32] LABS: PARTIAL THROMBOPLASTIN TIME 33.3 SECONDS (26.0-37.0)
[2022-10-30 01:37] LABS: ALANINE AMINOTRANSFERASE 20 U/L (0-55); ALBUMIN 3.6 gm/dL (3.4-4.8); ALKALINE PHOSPHATASE 110 U/L (40-150); ANION GAP 10 mmol/L (7-16); AST,SGOT 33 U/L (5-34); BILIRUBIN,TOTAL 2.7 mg/dL (0.2-1.2); BLOOD UREA NITROGEN 23 mg/dL (8-26); CALCIUM 9.4 mg/dL (8.4-10.2); CARBON DIOXIDE 25 mmol/L (23-31); CHLORIDE 104 mmol/L (98-107); CREATININE, serum 1.31 mg/dL (0.72-1.25); GLUCOSE 108 mg/dL (70-99); POTASSIUM 4.6 mmol/L (3.5-4.5); SODIUM 139 mmol/L (136-145); TOTAL PROTEIN 6.4 gm/dL (6.2-8.1)
[2022-10-30 01:39] LABS: ALCOHOL(ethanol),MEDICAL < 10 mg/dL (0-10)
[2022-10-30 01:57] LABS: TSH w REFLEX 1.826 uIU/mL (0.350-4.940)
[2022-10-30 02:00] LABS: TROPONIN-I 0.047 ng/mL (0.00-0.033)
[2022-10-30 04:02] LABS: COLLECTION METHOD CLEAN CATCH
[2022-10-30 04:13] LABS: PH 5.5 (5.0-8.5); URINE APPEARANCE Clear (CLEAR/HAZY); URINE BLOOD 2+ (NEGATIVE); URINE COLOR Yellow (YELLOW); URINE GLUCOSE Negative (NEGATIVE); URINE KETONE Negative (NEGATIVE); URINE NITRATE Negative (NEGATIVE); URINE PROTEIN(semi-quant) 2+ (NEGATIVE)
[2022-10-30 04:16] LABS: MUCOUS Present (NOT PRESENT); SQUAMOUS EPITHELIAL None Seen /hpf (0-10); URINE BACTERIA Rare /hpf (NONE SEEN)
[2022-10-30 04:18] LABS: ARTERIAL BLD GAS O2 SATURATION 94.7 % (92-100); ARTERIAL BLD GAS TCO2 CT 26.3; ARTERIAL BLOOD GAS BASE EXCESS -0.2 (-2-2); ARTERIAL BLOOD GAS PCO2 42.5 mmHg (35-45); ARTERIAL BLOOD GAS PO2 71.3 mmHg (80-100); ARTERIAL BLOOD GAS pH 7.39 (7.35-7.45)
[2022-10-30 04:35] LABS: TRICYCLIC ANTIDEPRESS URINE NEGATIVE
[2022-10-30] MEDS ORDERED: LOPRESSOR 550 MG/TAB PO (05:14)
[2022-10-30] MEDS ORDERED: NEURONTIN100 MG/CAP (05:19)
[2022-10-30 06:33] VITALS: BP 134/51; PULSE 73; TEMP 98.3
--- NOTE | 2022-10-30 08:35 | NUR ---
PT ARRIVED TO UNIT AT 0630. CARE ASSUMED BY THIS RN AT 0700. PT RESTING IN BED. PT ORIENTED TO ROOM AND FLOOR. CALL LIGHT GIVEN TO PT AND INSTRUCTED TO CALL [facility] ALL NEEDS AND NOT TO GET UP WITHOUT ASSISTANCE. PT VERBALIZED UNDERSTANDING AND BED ALARM ACTIVATED. 0800- ADMISSION AND ASSESSMENT COMPLETED. PT HAS BILATERAL ARM SKIN TEARS, SITES CLEANED AND DRESSINGS APPLIED. CONSULT FOR CARDIOLOGY CALLED TO [facility]. PT UPDATED ON PLAN OF CARE.
[2022-10-30 11:56] VITALS: BP 129/57; PULSE 82; TEMP 98.8
--- NOTE | 2022-10-30 14:03 | NUR ---
PT MORE CONFUSED. UNABLE TO STATE WHERE HE IS OR WHAT YEAR IT IS. PT REORIENTED. BEDALARM ACTIVE. NOTIFIED.
[2022-10-30 15:34] VITALS: BP 127/79; PULSE 72; TEMP 98.9
--- NOTE | 2022-10-30 15:56 | NUR ---
SW attempted to complete intake, unable to awake patient. Informed patient is confused. SW attempted to call daughter Wendie Mancia [phone] to complete intake, but was unable to reach. A SW will attempt to complete at a later time.
[2022-10-30 20:03] VITALS: BP 136/60; PULSE 87; TEMP 98.1
--- NOTE | 2022-10-31 03:58 | NUR ---
Shift assessment performed on pt. He has bruising bilaterally on his arms/hands and one on lower back as well as left side of back. These are from his recent falls at home. He is complaining of some back pain and was given Tylenol. He is on 2 L O2 and tele. He is in normal sinus rhythm. He is on fall precautions and a chair alarm in placed in his bed (due to bed alarm not working). Call light within reach. He is alert and oriented x4 tonight.
[2022-10-31 04:10] VITALS: BP 147/84; PULSE 67; TEMP 98.8
--- NOTE | 2022-10-31 06:19 | NUR ---
Patient care, medication administration and nursing documentation occurred during a Daylight Savings Time Change.
[2022-10-31 07:16] LABS: CALCIUM 9.1 mg/dL (8.4-10.2); CHOLESTEROL RISK RATIO 2.8; CREATININE, serum 1.33 mg/dL (0.72-1.25)
--- NOTE | 2022-10-31 07:27 | NUR ---
Pt had a restful night. He remained in normal sinus rhythm throughout shift. He is on 2 L O2. He remained alert and oriented x4 throughout shift. He is using a chair alarm on his bed due to the bed alarm not working. Pt is on fall precautions.
--- NOTE | 2022-10-31 08:00 | NUR ---
Assessment complete. A&Ox4. Denies pain/nausea/shortness of breath. VS remain stable. O2@2L/NC. Dressings changed to bilat upper extremity skin tears. Noted to have several skin tears to both arms as well as bruising. Also noted to have brusing to back. INT to left AC flushes well-no s/s of infiltration. Plan of care discussed for this shift to include meds/O2/VS/calling for questions/concerns. Verbalizes understanding. Call light in reach. Will monitor.
[2022-10-31 08:04] VITALS: BP 127/58; PULSE 85; TEMP 98.9
[2022-10-31 12:31] VITALS: BP 122/61; PULSE 83; TEMP 98.5
[2022-10-31 15:19] VITALS: BP 115/63; PULSE 78; TEMP 98.3
--- NOTE | 2022-10-31 15:29 | NUR ---
SW met with pt to complete intake. Pt is independent, Pt lives at home alone and has a electric wheelchair. PCP is Becki Reed MD and gets medications from [facility]. Pt NK is [facility] @ [phone][address] Dr[address] Franklin informed SW that he recommends pt have SNF and reports pt would like [facility]. DPOA-HC is in chart and the agents are [facility]ique or Alivia. No other needs at this time. SW await for further recommendations and follow up as needed. SW to faxed referral to [facility], pending PT/OT eval.
--- NOTE | 2022-10-31 18:12 | NUR ---
Patient had an uneventful day. Dressings changed to bilat upper extremities. Received tylenol x1 for headache. VS remained stable. Has been A&Ox4. O2@2L/NC. Denies current questions/concerns. Call light in reach. Will monitor.
[2022-10-31 19:21] VITALS: BP 135/64; PULSE 85; TEMP 99.9
[2022-11-01] VITALS (7 sets, daily range): BP systolic 122–160; BP diastolic 53–83; PULSE 54–74; TEMP 97.9–99
--- NOTE | 2022-11-01 07:10 | NUR ---
awake resting in bed, bedside shift report received from CLEVE Armijo
--- NOTE | 2022-11-01 08:20 | NUR ---
resting in bed, full assessment completed, see interventions for further info, has ordered breakfasta, denies needs at this time
--- NOTE | 2022-11-01 09:30 | NUR ---
NATURAL GAS TREATING UNIT OPERATOR callled nurse to room, patient had been eating and had choked on some food and was coughing, entered room and he is coughing and attempting to maybe cough up a piece of food, he is given sips of water and this helps somewhat, after water the coughing is less, will remain sitting up on side of bed,
--- NOTE | 2022-11-01 10:20 | NUR ---
resting in bed watching TV, states he is feeling much better and pain is better also
--- NOTE | 2022-11-01 11:40 | NUR ---
speech therapy in to work with patient
--- NOTE | 2022-11-01 11:54 | NUR ---
NILSA contacted Moraima at [facility] to follow up about the referral. Moraima states that they did not receive the referral. NILSA refaxed the referral to [facility]. Awaiting screen.
--- NOTE | 2022-11-01 12:24 | NUR ---
sitting upright in bed oleg virk with speech therapy in the room, he has done well and she wants to emphasize we make sure he is sitting upright when he eats, denies pain or needs
--- NOTE | 2022-11-01 13:21 | NUR ---
physical therapy in to work with patient
--- NOTE | 2022-11-01 14:00 | NUR ---
vascular airport maintenance laborer in to complete echo
--- NOTE | 2022-11-01 14:30 | NUR ---
assisted up to bedside commode and voided qs, then back to bed
--- NOTE | 2022-11-01 16:54 | NUR ---
resting in bed with TV on, denies needs
--- NOTE | 2022-11-01 19:03 | NUR ---
bedside shift report given to CLEVE Armijo
[2022-11-02 03:08] VITALS: BP 165/68; PULSE 63; TEMP 98.2
[2022-11-02 06:39] LABS: BASO % 0.1 % (0.0-2.0); GRAN # 6.9 K/mm3 (1.4-6.5); GRAN % 74.1 % (42.2-75.2); HEMATOCRIT 41.7 % (42.0-52.0); HEMOGLOBIN 14.3 g/dl (13.5-18.0); LYMPH # 1.3 K/mm3 (1.2-3.4); LYMPH % 13.9 % (20.0-51.0); MEAN CELL VOLUME 94 fl (80.0-100.0); MEAN CORPUSCULAR HEMOGLOBIN 32 pg (27-31); MEAN CORPUSCULAR HGB CONC 34 g/dl (33.0-37.0); MEAN PLATELET VOLUME 9.7 fl (7.4-10.4); MONO # 1.1 K/mm3 (0.1-0.6); MONO % 11.3 % (1.7-9.3); PLATELET COUNT 248 K/mm3 (130-400); RED BLOOD COUNT 4.45 M/mm3 (4.20-5.60)
--- NOTE | 2022-11-02 06:50 | NUR ---
PT O2 requirements 0.5-2L this shift, failed on RA, new INT placed for rocephin this am in left hand. pain controlled with tylenol and oxycodone, would like to start a muscle relaxer, left note on white board for medical team.
[2022-11-02 06:59] LABS: ALBUMIN 3.4 gm/dL (3.4-4.8); BILIRUBIN,TOTAL 0.9 mg/dL (0.2-1.2); CALCIUM 9.3 mg/dL (8.4-10.2); CREATININE, serum 1.19 mg/dL (0.72-1.25); MAGNESIUM 2.2 mg/dL (1.6-2.6); POTASSIUM 3.9 mmol/L (3.5-4.5); TOTAL PROTEIN 6.1 gm/dL (6.2-8.1)
--- NOTE | 2022-11-02 07:00 | NUR ---
PT RESTING IN BED. PT SITTING UP FOR BREAKFAST. PT HAS CALL LIGHT AND INSTRUCTED TO CALL WITH ALL NEEDS. BEDLARM ACTIVE.
[2022-11-02 07:56] VITALS: BP 131/60; PULSE 69; TEMP 97.9
--- NOTE | 2022-11-02 09:14 | NUR ---
Follow-up; Patient thanked [employer] Operator for looking in on him and offering prayer and God's blessings.
[2022-11-02] MEDS ORDERED: PREDNISONE20 MG PO (09:56)
[2022-11-02] MEDS ORDERED: MIRALAX PA17 GM/Dose PO (09:56)
[2022-11-02] MEDS ORDERED: ZANAFLEX 4MG TAB4 MG PO (09:57)
[2022-11-02] MEDS ORDERED: PACERONE100 MG PO (09:57)
[2022-11-02] MEDS ORDERED: MONODOX100 PO (09:57)
[2022-11-02] MEDS ORDERED: PROAIR HFA0.09 MG/AC IH (09:58)
--- NOTE | 2022-11-02 10:17 | NUR ---
The clinical team is ready to discharge the patient today. NILSA notified and faxed updates to Moraima at [facility]. Moraima states that they are able to accept the patient today. Transportation was scheduled around [id number], via [facility]. NILSA contacted and updated the patient's daughter, Wendie. She is in agreement to the plan. NILSA met with the patient to update. He is also in agreement. NILSA presented and read the IM form outloud to him. The patient verbalized understanding and signed the form. He declined a copy. The patient is to discharge today, 11/02, to [facility] for a skilled stay. Transportation provided by [facility]. NILSA updated the RN. No additional needs at this time.
[2022-11-02] MEDS ORDERED: JARDIANCE10 PO (10:24)
[2022-11-02] MEDS ORDERED: ROXICODONE 55 MG/TAB PO (10:29)
--- NOTE | 2022-11-02 11:23 | NUR ---
REPORT CALLED TO ASHLEY POON AT [facility]. PT TRANSFERED TO WHEELCHAIR FOR DISCHARGE. PACKET GIVEN.
== END 2022-11-02 11:32 | DRG 177 ==
LOC: COL.ER 00:55 → MEDICAL 04:50
PROVIDERS: Emergency Medicine; Nurse Practitioner; Physician Assistant; ADMIT Internal Medicine
DX: J69.0 Pneumonitis due to inhalation of food and vomit (principal); I21.A1 Myocardial infarction type 2; J96.01 Acute respiratory failure with hypoxia; J44.1 Chronic obstructive pulmonary disease with (acute) exacerbation; G93.40 Encephalopathy, unspecified; I13.0 Hypertensive heart and chronic kidney disease with heart failure and stage 1 through stage 4 chronic kidney disease, or unspecified chronic kidney disease; I50.32 Chronic diastolic (congestive) heart failure; J18.9 Pneumonia, unspecified organism; Z66 Do not resuscitate; K21.9 Gastro-esophageal reflux disease without esophagitis; E03.9 Hypothyroidism, unspecified; E87.5 Hyperkalemia; E78.5 Hyperlipidemia, unspecified; I25.10 Atherosclerotic heart disease of native coronary artery without angina pectoris; I45.10 Unspecified right bundle-branch block; G47.33 Obstructive sleep apnea (adult) (pediatric); I65.29 Occlusion and stenosis of unspecified carotid artery; Z20.822 Contact with and (suspected) exposure to COVID-19; N18.9 Chronic kidney disease, unspecified; M85.80 Other specified disorders of bone density and structure, unspecified site; I48.0 Paroxysmal atrial fibrillation; M81.0 Age-related osteoporosis without current pathological fracture; G89.29 Other chronic pain; M54.9 Dorsalgia, unspecified; Z79.890 Hormone replacement therapy; Z86.73 Personal history of transient ischemic attack (TIA), and cerebral infarction without residual deficits; Z90.49 Acquired absence of other specified parts of digestive tract; Z95.1 Presence of aortocoronary bypass graft; Z95.5 Presence of coronary angioplasty implant and graft; Z79.02 Long term (current) use of antithrombotics/antiplatelets; Z87.891 Personal history of nicotine dependence; Z88.5 Allergy status to narcotic agent; Z88.8 Allergy status to other drugs, medicaments and biological substances; Z23 Encounter for immunization
CPT/HCPCS: A9270; A9284; J0696; J1650; J1940; J2920; J2930; J7512